=== PATIENT | male | born 1980 | race African-American/Black ===

== ENCOUNTER 2023-02-03 17:27 | Emergency (ER) | payer OTHER ==
[~2023-02-03] VITALS: Ht 175.3 cm; Wt 90.7 kg
[2023-02-03 17:27] VITALS: BP 142/109; PULSE 70; RESP 18; TEMP 98.5; O2SAT 97
[2023-02-03] MEDS ORDERED: TORADOL IV STA (17:45)
[2023-02-03] MEDS ORDERED: TORADOL ONE (17:53)
[2023-02-03 18:30] VITALS: BP 143/93; PULSE 62; RESP 18; O2SAT 95
== END 2023-02-03 19:36 | disposition home or self-care (01) ==
LOC: ER 17:27
DX: M25.561 Pain in right knee (principal); E11.9 Type 2 diabetes mellitus without complications; V89.2XXA Person injured in unspecified motor-vehicle accident, traffic, initial encounter; Y93.89 Activity, other specified; Y92.410 Unspecified street and highway as the place of occurrence of the external cause; Y99.8 Other external cause status
CPT/HCPCS: 99285; 72125; 96374; 73090; 72128; 72131; 73562; J1885